=== PATIENT | male | born 1975 | race Caucasian/White ===

== ENCOUNTER 2022-03-30 14:12 | Emergency (ER) | payer SELFPAY ==
[~2022-03-30] VITALS: Ht 175.3 cm; Wt 61.4 kg
[2022-03-30 14:14] VITALS: TEMP 98.2
[2022-03-30 14:35] LABS: ARTERIAL BLD GAS O2 SATURATION 98.8 % (92-100); ARTERIAL BLD GAS TCO2 CT 23.2; ARTERIAL BLOOD GAS BASE EXCESS -1.1 (-2-2); ARTERIAL BLOOD GAS HCO3 22.2 meq/L (22-26); ARTERIAL BLOOD GAS pH 7.45 (7.35-7.45)
[2022-03-30 14:36] LABS: ARTERIAL BLOOD GAS PO2 142.5 mmHg (80-100)
[2022-03-30 16:01] VITALS: BP 123/61; PULSE 62
== END 2022-03-30 16:04 | disposition home or self-care (01) ==
LOC: COL.ER 14:12
PROVIDERS: Emergency Medicine
DX: T59.811A Toxic effect of smoke, accidental (unintentional), initial encounter (principal); R79.81 Abnormal blood-gas level; Z87.891 Personal history of nicotine dependence; Z28.310 Unvaccinated for COVID-19; X08.8XXA Exposure to other specified smoke, fire and flames, initial encounter; Y92.009 Unspecified place in unspecified non-institutional (private) residence as the place of occurrence of the external cause